=== PATIENT | male | born 1990 | race African-American/Black ===

== ENCOUNTER 2017-08-31 12:02 | Emergency (ER) | payer OTHER ==
[~2017-08-31] VITALS: Ht 180.3 cm; Wt 93.4 kg
[2017-08-31] MEDS ORDERED: SKELAXIN800 MG PO (13:42)
[2017-08-31] MEDS ORDERED: NAPROSYN500 MG PO (13:42)
[2017-08-31 14:49] VITALS: BP 140/77
== END 2017-08-31 14:49 | disposition home or self-care (01) ==
LOC: EME 12:02
DX: S46.911A Strain of unspecified muscle, fascia and tendon at shoulder and upper arm level, right arm, initial encounter (principal); S39.012A Strain of muscle, fascia and tendon of lower back, initial encounter; V43.52XA Car driver injured in collision with other type car in traffic accident, initial encounter; Y92.410 Unspecified street and highway as the place of occurrence of the external cause
CPT/HCPCS: 72100; 73030; 99281; 99284